=== PATIENT | female | born 1975 | race Caucasian/White ===

== ENCOUNTER 2022-04-15 11:05 | Outpatient (CLI) | payer OTHER, SELFPAY ==
--- NOTE | 2022-04-15 11:30 | CRLHL7_ITS ---
For Patients: As a result of the Century Cures Act, medical imaging exams and procedure reports are released immediately into your electronic medical record. You may view this report before your referring provider. If you have questions, please contact your health care provider. BILATERAL SCREENING MAMMOGRAM WITH COMPUTER-AIDED DETECTION TECHNIQUE: CC and MLO views were obtained. These mammographic images have been obtained using full-field digital technique. These mammographic images were interpreted with the benefit of computer-aided detection. COMPARISON FILM: 12/29/17, 12/23/16. FINDINGS: The breasts are heterogeneously dense, which may obscure small masses IMPRESSION: There is no radiographic evidence for malignancy. ASSESSMENT: BI-RADS Category 2: Benign RECOMMENDATION: Routine screening mammogram in 1 year. A lay language report of this examination will be provided to the patient. Luis M Porter M.D. Diagnostic Radiologist [email or web address] Transcribed: 2:00 pm DW/Dictated by: Luis M Porter MD @ 04/15/2022 11:47:00 AM (Electronically Signed)
== END 2022-04-15 11:06 | disposition home or self-care (01) ==
LOC: MAMMO 11:06
PROVIDERS: PCP Family Medicine; Visit Provider Family Medicine
DX: Z12.31 Encounter for screening mammogram for malignant neoplasm of breast (principal); R92.2 Inconclusive mammogram
CPT/HCPCS: 77063; 77067

== ENCOUNTER 2022-05-06 08:02 | Outpatient (CLI) | payer OTHER, SELFPAY ==
[2022-05-06 14:59] LABS: Albumin* 4.4 g/dL (3.3-5.0)
[2022-05-06 15:00] LABS: Chloride* 107 mmol/L (96-114); Potassium* 3.9 mmol/L (3.6-5.1); Sodium* 140 mmol/L (135-149)
[2022-05-06 15:02] LABS: Aspartate Amino Transferase* 21 U/L (12-35); Bilirubin Total* 0.5 mg/dL (0.1-1.5); Blood Urea Nitrogen* 12 mg/dL (5-24); Carbon Dioxide* 25 mmol/L (20-32); Cholesterol* 204 mg/dL (90-199); Creatinine* 0.6 mg/dL (0.5-1.5); Estimated Glomerular Filt Rate 111 ml/min; Total Protein* 7.7 g/dL (6.0-8.3)
[2022-05-06 15:03] LABS: Alanine Aminotransferase* 15 U/L (4-35); Alkaline Phosphatase* 63 U/L (40-150); Calcium* 8.9 mg/dL (8.4-10.6); Glucose* 91 mg/dL (60-115); HDL Cholesterol* 44 mg/dL (>=50); LDL Cholesterol Calculated 126 mg/dL (<100); Triglycerides* 170 mg/dL (40-149)
== END 2022-05-06 08:03 | disposition home or self-care (01) ==
PROVIDERS: PCP Family Medicine; Visit Provider Family Medicine
DX: Z00.00 Encounter for general adult medical examination without abnormal findings (principal); Z13.6 Encounter for screening for cardiovascular disorders
CPT/HCPCS: 80053; 80061

== ENCOUNTER 2025-02-21 09:03 | Outpatient (CLI) | payer OTHER, SELFPAY | END 2025-02-21 09:04 | disposition home or self-care (01) | LOC: FRMREF 09:04 | PROVIDERS: Visit Provider Registered Nurse | DX: Z00.00 Encounter for general adult medical examination without abnormal findings (principal); Z13.1 Encounter for screening for diabetes mellitus | CPT/HCPCS: 80061; 82947 ==

== ENCOUNTER 2025-04-11 08:49 | Outpatient (CLI) | payer OTHER, SELFPAY ==
--- NOTE | 2025-04-11 09:51 | P.ANES_ITS ---
Anesthesia Charges Start Date/Time Anesthesia Start Date: 04/11/25 Anesthesia Start Time: 09:20 Stop Date/Time Anesthesia Stop Date: 04/11/25 Anesthesia Stop Time: 09:48 Coding CPT Codes CPT Codes: JOANN LWR INTST NDOK NOS - [id number] ([id number]) P1 - NORMAL HEALTHY PATIENT, QX - PUSH BENCH OPERATOR HELPER SVPallavi W/ MED DIRECTION, QK - COMPUTER TRAINING SPECIALIST 2-4 CNCRNT JOANN PROC
--- NOTE | 2025-04-11 09:51 | W.ANESCHARGE ---
Anesthesia Charges Start Date/Time Anesthesia Start Date: 04/11/25 Anesthesia Start Time: 09:20 Stop Date/Time Anesthesia Stop Date: 04/11/25 Anesthesia Stop Time: 09:48 Coding CPT Codes CPT Codes: JOANN LWR INTST NDID NOS - [id number] ([id number]) P1 - NORMAL HEALTHY PATIENT, QX - CEMENT MASON APPRENTICE SVPallavi W/ MED DIRECTION, QK - SALES AMBASSADOR 2-4 CNCRNT JOANN PROC
--- NOTE | 2025-04-11 10:40 | P.ANES_ITS ---
Anesthesia Charges Start Date/Time Anesthesia Start Date: 04/11/25 Anesthesia Start Time: 09:20 Stop Date/Time Anesthesia Stop Date: 04/11/25 Anesthesia Stop Time: 09:48 Coding CPT Codes CPT Codes: JOANN LWR INTST NDOH NOS - [id number] ([id number]) P1 - NORMAL HEALTHY PATIENT, QK - STREET SUPERINTENDENT 2-4 CNCRNT ANES PROC, QX - LOOP PULLER SVC W/ MED DIRECTION
--- NOTE | 2025-04-11 10:40 | W.ANESCHARGE ---
Anesthesia Charges Start Date/Time Anesthesia Start Date: 04/11/25 Anesthesia Start Time: 09:20 Stop Date/Time Anesthesia Stop Date: 04/11/25 Anesthesia Stop Time: 09:48 Coding CPT Codes CPT Codes: JOANN LWR INTST NDMN NOS - [id number] ([id number]) P1 - NORMAL HEALTHY PATIENT, QK - SIGN WIRER 2-4 CNCRNT ANES PROC, QX - LEAD PROJECT ENGINEER SVC W/ MED DIRECTION
== END 2025-04-11 08:50 | disposition home or self-care (01) ==
LOC: OP CLINIC 08:49
PROVIDERS: Visit Provider Surgery
DX: Z12.11 Encounter for screening for malignant neoplasm of colon (principal); D12.7 Benign neoplasm of rectosigmoid junction
CPT/HCPCS: 00811; 00812; 45385; J2704